=== PATIENT | male | born 1960 | race Caucasian/White ===

== ENCOUNTER 2022-06-01 10:36 | Outpatient (CLI) | payer OTHER, SELFPAY ==
[2022-06-01 18:59] LABS: Basophils Absolute Auto 0.1 K/mm3 (0.0-0.1); Basophils Percent Auto 0.7 % (0.2-1.2); Eosinophils Absolute Auto 0.3 K/mm3 (0-0.3); Eosinophils Percent Auto 2.1 % (0-4.4); Hemoglobin 16.3 g/dL (14.0-18.0); Immature Granulocyte Absolute 0.15 K/mm3 (0.00-0.031); Immature Granulocyte Percent A 1.3 % (0-0.5); Lymphocytes Absolute Auto 3.14 K/mm3 (0.9-3.2); Lymphocytes Percent Auto 26.3 % (18.3-44.2); Mean Corpuscular HGB Conc 33.3 g/dl (32-36); Mean Corpuscular Hemoglobin 27.8 pg (26-34); Mean Corpuscular Volume 83.5 fl (80-100); Mean Platelet Volume 10.9 fl (7.4-10.4); Monocytes Absolute Auto 0.6 K/mm3 (0.1-0.6); Monocytes Percent Auto 5.2 % (2.6-8.5); Neutrophils Absolute Auto 7.7 K/mm3 (1.3-6.7); Neutrophils Percent Auto 64.4 % (45.5-73.1); Platelet Count Result 269 k/mm3 (150-375); Red Blood Count 5.87 M/mm3 (4.6-6.20); Red Cell Distribution Width 14.2 % (11.5-14.5)
[2022-06-01 19:45] LABS: Creatinine Urine 107.9 mg/dL
[2022-06-01 19:49] LABS: Hemoglobin A1C 9.9 % (<5.7)
[2022-06-01 19:50] LABS: MALB Creatinine Ratio 48.4 mg/g (0-30); Microalbumin Urine Random 52.2 mg/L (0-16.7)
[2022-06-01 20:04] LABS: LDL Cholesterol Direct 35 mg/dL
[2022-06-01 20:05] LABS: Alanine Aminotransferase 29 U/L (6-50); Albumin Level 4.7 g/dL (3.5-5.1); Alkaline Phosphatase 91 U/L (38-126); Anion Gap 8 mmol/L (8-16); Aspartate Amino Transferase 25 U/L (17-59); Bilirubin,Total 0.5 mg/dL (0.2-1.3); Blood Urea Nitrogen 15 mg/dL (9-20); Calcium 9.2 mg/dL (8.4-10.2); Carbon Dioxide 28 mmol/L (22-30); Chloride 96 mmol/L (98-107); Cholesterol 310 mg/dL (0-200); Estimated Glomerular Filt Rate > 60; Glucose 284 mg/dL (65-110); HDL Direct 37 mg/dL; Potassium 4.2 mmol/L (3.4-5.0); Sodium 132 mmol/L (137-145)
[2022-06-01 21:21] LABS: Triglycerides 1995 mg/dL (<150)
== END 2022-06-01 10:37 | disposition home or self-care (01) ==
LOC: ANHGOSHLAB 10:37
PROVIDERS: PCP Family Medicine; Visit Provider Nurse Practitioner
DX: E78.5 Hyperlipidemia, unspecified (principal); E11.9 Type 2 diabetes mellitus without complications
CPT/HCPCS: 36415; 80053; 80061; 82043; 83036; 85025

== ENCOUNTER 2022-07-01 12:42 | Outpatient (CLI) | payer OTHER, SELFPAY ==
[2022-07-01 21:02] LABS: Alanine Aminotransferase 31 U/L (6-50); Albumin Level 4.5 g/dL (3.5-5.1); Alkaline Phosphatase 88 U/L (38-126); Anion Gap 13 mmol/L (8-16); Aspartate Amino Transferase 27 U/L (17-59); Bilirubin,Total 0.7 mg/dL (0.2-1.3); Blood Urea Nitrogen 20 mg/dL (9-20); Calcium 9.2 mg/dL (8.4-10.2); Carbon Dioxide 24 mmol/L (22-30); Chloride 99 mmol/L (98-107); Estimated Glomerular Filt Rate > 60; Glucose 271 mg/dL (65-110); Potassium 4.8 mmol/L (3.4-5.0); Sodium 136 mmol/L (137-145)
[2022-07-01 21:06] LABS: Basophils Absolute Auto 0.1 K/mm3 (0.0-0.1); Basophils Percent Auto 0.5 % (0.2-1.2); Eosinophils Absolute Auto 0.2 K/mm3 (0-0.3); Eosinophils Percent Auto 1.5 % (0-4.4); Hematocrit 47.7 % (42.0-52.0); Immature Granulocyte Absolute 0.14 K/mm3 (0.00-0.031); Immature Granulocyte Percent A 1.3 % (0-0.5); Lymphocytes Absolute Auto 2.53 K/mm3 (0.9-3.2); Mean Corpuscular HGB Conc 33.5 g/dl (32-36); Mean Corpuscular Volume 83.5 fl (80-100); Mean Platelet Volume 10.9 fl (7.4-10.4); Monocytes Absolute Auto 0.7 K/mm3 (0.1-0.6); Monocytes Percent Auto 6.2 % (2.6-8.5); Neutrophils Absolute Auto 7.4 K/mm3 (1.3-6.7); Neutrophils Percent Auto 67.5 % (45.5-73.1); Platelet Count Result 280 k/mm3 (150-375); Red Blood Count 5.71 M/mm3 (4.6-6.20); Red Cell Distribution Width 13.9 % (11.5-14.5)
== END 2022-07-01 12:43 | disposition home or self-care (01) ==
LOC: ANHGOSHLAB 12:45
PROVIDERS: PCP Nurse Practitioner; Visit Provider Nurse Practitioner
DX: D72.829 Elevated white blood cell count, unspecified (principal); E87.1 Hypo-osmolality and hyponatremia
CPT/HCPCS: 36415; 80053; 85025

== ENCOUNTER 2022-07-01 15:07 | Outpatient (CLI) | payer OTHER, SELFPAY ==
--- NOTE | ~2022-07-01 | CT_ITS ---
EXAMINATION: CT brain wo con DATE: 07/01/2022 15:35 INDICATION: TECHNIQUE: Computed tomography (CT) of the head was performed without intravenous contrast. The dose- length product was 605.33 mGy-cm. Automated exposure control and iterative reconstruction technique w ere employed. COMPARISON: CT dated 10/16/2007 FINDINGS: Mild generalized atrophy. No ventriculomegaly or midline shift. Basilar cisterns are patent . No acute intracranial hemorrhage, infarction, mass or mass effect. There are scattered mild periven tricular and subcortical white matter changes, most likely related to small vessel ischemic disease ( microangiopathy). Paranasal sinuses and mastoids are pneumatized. No depressed skull fractures. IMPRESSION: 1. No acute intracranial abnormality. 2: Chronic age-related findings. Reviewed, dictated and finalized at location B.
== END 2022-07-01 15:08 | disposition home or self-care (01) ==
LOC: ANHIMG 15:10
PROVIDERS: PCP Family Medicine; Visit Provider Nurse Practitioner
DX: R42 Dizziness and giddiness (principal); G43.909 Migraine, unspecified, not intractable, without status migrainosus
CPT/HCPCS: 36415; 70450; 80053; 85025

== ENCOUNTER 2025-01-27 15:18 | Outpatient (CLI) | payer OTHER, SELFPAY ==
--- OUTSIDE RECORDS SUMMARY | 2025-01-27 17:28 | XMS_ITS | Clinical Summary ---
Author Organization [facility] Address [address] [place] [address] Care Team Providers Care Dental Office Coordinator Name Role Phone Oneyda Pina MD Primary Care Provider Allergies Active Allergy Reactions Criticality Noted Date Comments Metoclopramide Anxiety,Other (See Comments) Low 02/28/2020 severe anxiety Extreme anxiety Penicillins Swelling Low 08/11/2016 States he can take Amoxicillin without problems. Prochlorperazine Anxiety Low 08/11/2016 gives me anxiety Sulfa (Sulfonamide Antibiotics) Hives High 08/11/2016 Sulfamethoxazole-Trimetho prim Unknown 08/11/2016 Medications HYDROcodone-micky taminophen (NORCO) 5-325 mg tablet Take 1 Tablet by mouth 2 times daily. Active empagliflozin (JARDIANCE) 25 mg tablet Take 25 mg by mouth daily. Active erenumab-aooe (Aimovig Autoinjector) 140 mg/mL Auto-Injector ADMINISTER 1 ML UNDER THE SKIN MONTHLY 3 Active FLUoxetine (PROzac) 20 mg capsule Take 20 mg by mouth daily. 3 Active SEMAGLUTIDE SUBCUT Inject by subcutaneous injection. Active ubrogepant (UBRELVY) 100 mg tablet Take 100 mg by mouth one time only. Active Active Problems No known active problems Encounters Date Type Department Care Team Description 11/12/2024 3:30 PM FACILITY MAINTENANCE MECHANIC Office Visit [facility] [id number] [id number] [facility] Himanshu Kamila, BRANCH COORDINATOR Cough, unspecified type (Primary Dx); Influenza from Last 3 Months Social History Tobacco Use Types Packs/Day Years Used Date Smoking Tobacco: Never Smokeless Tobacco: Never Alcohol Use Standard Drinks/Week Comments Never 0 (1 standard drink = 0.6 oz pur e alcohol) Sex and Gender Information Value Date Recorded Sex Assigned at Not on file Legal Sex Male 4:19 AM FACILITY MAINTENANCE MECHANIC Gender Identity Not on file Sexual Orientation Not on file Last Filed Vital Signs Vital Sign Reading Time Taken Comments Blood Pressure 151/84 11/12/2024 12:47 PM FACILITY MAINTENANCE MECHANIC Pulse 93 11/12/2024 12:47 PM FACILITY MAINTENANCE MECHANIC Temperature 36.8 C (98.3 F) 11/12/2024 12:47 PM FACILITY MAINTENANCE MECHANIC Respiratory Rate 18 11/12/2024 12:47 PM FACILITY MAINTENANCE MECHANIC Oxygen Saturation 96% 11/12/2024 12:47 PM FACILITY MAINTENANCE MECHANIC Inhaled Oxygen Concentration - - Weight 104.3 kg (230 lb) 11/12/2024 12:47 PM FACILITY MAINTENANCE MECHANIC Height 172.7 cm (5' 8 ) 11/12/2024 12:47 PM FACILITY MAINTENANCE MECHANIC Body Mass Index 34.97 11/12/2024 12:47 PM FACILITY MAINTENANCE MECHANIC Plan of Treatment Health Maintenance Due Date Last Done Comments DIABETES ANNUAL RETINAL EXAM 02/01/1978 DIABETES MICROALBUMIN ANNUAL SCREEN 02/01/1978 LDL CHOLESTEROL ANNUAL 02/01/1978 DTAP/TDAP/TD VACCINES (1 - Tdap) 02/01/1979 COLORECTAL SCREENING 02/01/2005 Colorectal Cancer Screening 02/01/2005 FIT-DNA Q 3 years 02/01/2005 FIT/FOBT Q 1 year 02/01/2005 Flex Sig/CT Colonography Q 5 years 02/01/2005 ZOSTER VACCINE (1 of 2) 02/01/2010 RSV VACCINE (60+ or ) (1 - Risk 60-74 years 1-dose series) 2020 DIABETES HBA1C Q 6 MONTHS 05/11/2021 11/11/2020 DIABETES ANNUAL FOOT EXAM 11/11/2021 11/11/2020 INFLUENZA VACCINE (#1) 2024 07/01/2022 COVID-19 Vaccine ( season) 2024 08/19/2023, 01/10/2021, 12/20/2020 Procedures Procedure Name Priority Date/Time Associated Diagnosis Comments POC INFLUENZA A AND B ANTIGEN Routine 11/12/2024 1:08 PM FACILITY MAINTENANCE MECHANIC Cough, unspecified type from Last 3 Months Results * POC INFLUENZA A AND B ANTIGEN (11/12/2024 1:08 PM FACILITY MAINTENANCE MECHANIC) INFLUENZA A AG POC Negative/Not Detected Negative/No t [facility]ed [facility] INFLUENZA B AG POC Negative/Not Detected Negative/No t Detected [facility] INTERNAL KIT QC POC Pass Pass [facility] KIT LOT NUMBER POC [id number] [facility] KIT EXP DATE POC 08/31/25 [facility] READ METHOD POC Visual [facility] Upper Respiratory ANTERIOR NARES SWAB / Unknown 11/12/2024 1:08 PM FACILITY MAINTENANCE MECHANIC Kamila Downs BRANCH COORDINATOR POINT OF CARE TESTING Final Res ult [facility] CLIA# [id number] [place] [address] from Last 3 Months Insurance [employer] [facility] [id number] [place] [address] [place] [address] Care Teams Dental Office Coordinator Relationship Specialty Start Date End Date Oneyda Pina MD [address] [place] [phone] PCP - General Family Practice 06/09/21
--- OUTSIDE RECORDS SUMMARY | 2025-01-27 17:28 | XMS_ITS | Encounter Summary ---
Author Organization [facility] Address [address] [place] [address] Care Team Providers Care Pit Slagman Name Role Phone Oneyda Pina MD Primary Care Provider Encounter Details Date Type Department Care Team (Late st Contact Info) Description 04/02/1998 Outpatient Historical [facility] Internal Medicine - [facility] [address] [place] [address] [place] [address] [place] [address] Social History Tobacco Use Types Packs/Day Years Used Date Smoking Tobacco: Never Assessed Sex and Gender Information Value Date Recorded Sex Assigned at Not on file Legal Sex Male 4:19 AM FACILITY ENVIRONMENTAL TECHNICIAN Gender Identity Not on file Sexual Orientation Not on file documented as of this encounter Plan of Treatment Not on file documented as of this encounter Visit Diagnoses Not on filedocumented in this encounter Additional Health Concerns Infection Onset Date Last Indicated Resolved Time R/O COVID-19 06/09/2021 06/10/2021 06/10/2021 1:20 PM CDT R/O COVID-19 01/15/2022 01/15/2022 01/16/2022 11:1 3 AM CDT documented as of this encounter Care Teams Pit Slagman Relationship Specialty Start Date End Date Oneyda Pina MD [address] [place] [phone] PCP - General Family Practice 06/09/21 documented as of this encounter
--- OUTSIDE RECORDS SUMMARY | 2025-01-27 17:28 | XMS_ITS | CONTINUITY OF CARE DOCUMENT ---
Author Name lien emmanuel Address Unknown Organization [facility] Address [address] [place] [address] Phone [phone] Care Team Providers Care Oven Drier Tender Name Role Phone lien emmanuel Unavailable Unavailable
--- OUTSIDE RECORDS SUMMARY | 2025-01-27 17:28 | XMS_ITS | Encounter Summary ---
Author Organization [facility] Address [address] [place] [address] Care Team Providers Care Parking Meter Collector Name Role Phone Oneyda Pina MD Primary Care Provider Encounter Details Date Type Department Care Team (Late st Contact Info) Description 12/31/1998 Outpatient Historical [facility] Internal Medicine - [facility] [address] [place] [address] [place] [address] [place] [address] Social History Tobacco Use Types Packs/Day Years Used Date Smoking Tobacco: Never Assessed Sex and Gender Information Value Date Recorded Sex Assigned at Not on file Legal Sex Male 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
--- OUTSIDE RECORDS SUMMARY | 2025-01-27 17:28 | XMS_ITS | Encounter Summary ---
Author Organization [facility] Address [address] [place] [address] Care Team Providers Care Metal Fabricator Welder Name Role Phone Oneyda Pina MD Primary Care Provider Encounter Details Date Type Department Care Team (Late st Contact Info) Description 02/22/2000 Outpatient Historical [facility] Internal Medicine - [facility] [address] [place] [address] [place] [address] [place] [address] Social History Tobacco Use Types Packs/Day Years Used Date Smoking Tobacco: Never Assessed Sex and Gender Information Value Date Recorded Sex Assigned at Not on file Legal Sex Male 4:19 AM SCULLION CHIEF Gender Identity Not on file Sexual Orientation [...] documented as of this encounter Care Teams Metal Fabricator Welder Relationship Specialty Start Date End Date Oneyda Pina MD [address] [place] [phone] PCP - General Family Practice 06/09/21 documented as of this encounter
--- OUTSIDE RECORDS SUMMARY | 2025-01-27 17:28 | XMS_ITS | Clinical Summary ---
Author Organization [facility] Address [address] [facility] [place] [address] Care Team Providers Care Business Director Name Role Phone Ching Mendes DO Primary Care Provi shant Allergies Active Allergy Reactions Criticality Noted Date Comments Penicillins Swelling Medium 08/11/2016 Prochlorperazine Anxiety Low 08/11/2016 gives me anxiety Metoclopramide Anxiety Low 02/28/2020 severe anxiety Sulfa (Sulfonamide Antibiotics) Hives Medium 08/02 Medications diazePAM (VALIUM) 5 mg tablet TK 1 T PO QPM AT BED 0 Active HYDROcodone-acetam inophen (NORCO) 5-325 mg per tablet TK 1 T PO Q 12 H PRF PAIN 0 Active aspirin/acetaminop hen/caffeine (EXCEDRIN MIGRAINE ORAL) Take by mouth daily as needed Active albuterol HFA (ProAir HFA) 90 mcg/actuation inhalerIndications :SOB (shortness of breath),Exposure to COVID-19 virus Inhale 2 puffs every 4 (four) hours as needed for wheezing or shortness of breath 8.5 g 1 Active metFORMIN XR (GLUCOPHAGE XR) 500 mg 24 hr tabletIndications: Type 2 diabetes mellitus with hyperglycemia, without long-term current use of insulin (HCC),Type II diabetes mellitus with complication (HCC),Type 2 diabetes mellitus with hyperlipidemia (HCC),Type 2 diabetes mellitus with diabetic autonomic neuropathy, without long-term current use of insulin (HCC),Obesity, diabetes, and hypertension syndrome (HCC),Hypertension associated with diabetes (HCC) Take 1 tab in the morning x3 days, 1 tab twice daily x3 days, 2 tabs in AM & 1 tab in PM x3 days, then 2 tabs twice daily 120 tablet [address] (CYMBALTA) 60 mg capsuleIndications :Moderate episode of recurrent major depressive disorder (HCC),GENESIS (generalized anxiety disorder),Chronic back pain, unspecified back location, unspecified back pain laterality Take 1 capsule (60 mg total) by mouth daily 90 capsule 1 1 Active atorvastatin (LIPITOR) 40 mg tabletIndications: Type II diabetes mellitus with complication (HCC),Type 2 diabetes mellitus with hyperlipidemia (HCC) Take 1 tablet (40 mg total) by mouth daily 90 tablet 1 1 Active lisinopriL (PRINIVIL,ZESTRIL) 10 mg tabletIndications: Type 2 diabetes mellitus with hyperglycemia, without long-term current use of insulin (HCC),Type II diabetes mellitus with complication (HCC),Obesity, diabetes, and hypertension syndrome (HCC),Hypertension associated with diabetes (HCC) TAKE 1 TABLET(10 MG) BY MOUTH DAILY 90 tablet 1 Active butalbital-acetami nophen-caffeine (FIORICET) 50-300-40 mg per capsule TAKE 1 CAPSULE BY MOUTH EVERY 4 HOURS FOR 4 DAYS NEEDED FOR HEADACHE 1 Active ondansetron (Zofran) 4 mg tabletIndications: Viral illness Take 1 tablet (4 mg total) by mouth every 8 (eight) hours as needed for nausea or vomiting 20 tablet 1 Active eletriptan (RELPAX) 20 mg tabletIndications: Migraine with aura and without status migrainosus, not intractable TAKE 1 TABLET BY MOUTH NEEDED MIGRAINE. MAY REPEAT IN 2 HOURS IF UNRESOLVED. DO NOT EXCEED 4 TABLETS IN 24 HOURS 20 tablet 1 Active SUMAtriptan (IMITREX) 50 mg tabletIndications: Migraine with aura and without status migrainosus, not intractable TAKE 1 TABLET BY MOUTH EVERY DAY NEEDED FOR MIGRAINE. MAY REPEAT DOSE 1 TIME IN 2 HOURS IF NO RELIEF. DO NOT EXCEED 2 TABLETS IN 24 HOURS 9 tablet 1 Active Active Problems Problem Noted Date Diagnosed Date Viral illness 01/19/2021 Assessment & Plan (01/19/2021 4:36 PM CDT): DDx: viral illness v strep throat v mono v delayed vaccine reaction v less likely influenza or covid (late in the year for influenza + outside window that flu rx would be beneficial; pt possibly already had covid 10/2020, just received 2nd covid vaccine) Supportive care, bland diet, plenty of fluids, rest zofran prn nausea Tylenol/ibu prn myalgias, sore throat Discussed return/ER precautions Hypertriglyceridemia 01/19/2021 Assessment & Plan (01/19/2021 4:35 PM CDT): TGs 1600 on 11/2020 labs. Atorvastatin increased. Counseled on healthy diet, exercise Recheck labs at next OV Insomnia 12/14/2020 Assessment & Plan (12/14/2020 10:08 AM CDT): D/w pt eating healthy, exercising, relaxation, counsling and medicaiton. List of therapist/psychiatrist given to pt. Can take otc Melatonin ER. SIGECAPS/anxiety positive; No SI,M,P; NO PMHx of malgorzata If has any sucidual thoughts to go to ER immediately. The patient was advised to call the office if symptoms worsen or do not improve. The patient verbalized an understanding of all instructions & plan. Type 2 diabetes mellitus wit h diabetic autonomic neuropathy, without long-term current use of insulin 08/23/2020 Assessment & Plan (11/11/2020 8:32 AM PARTS REMOVER): Cont medication. Assessment & Plan (08/23/2020 5:20 PM PARTS REMOVER): Possibly 2/2 cymbalta and/or autonomic neuropathy from DM2 tx DM2 as noted Start sildenafil prn - discussed potential SEs Drug-induced erectile dysfunction 08/18/2020 Assessment & Plan (08/23/2020 5:20 PM PARTS REMOVER): Possibly 2/2 cymbalta and/or autonomic neuropathy from DM2 tx DM2 as noted Start sildenafil prn - discussed potential SEs Class 2 obesity due to exces s calories with body mass index (BMI) of 38.0 to 38.9 in adult 04/21/2020 Assessment & Plan (01/19/2021 2:11 PM CDT): BMI follow up includes nutrition counseling, exercise counseling and education provided Assessment & Plan (11/11/2020 8:16 AM PARTS REMOVER): BMI follow up includes nutrition counseling, exercise counseling and education provided Type II diabetes mellitus with complication 04/2020 Assessment & Plan (12/14/2020 8:24 AM CDT): Cont to take medication. Cont to monitor feet. Cont to go to eye doctor yearly. Cont to check blood sugars. Cont to eat healthy & exercise. Assessment & Plan (11/30/2020 10:42 AM PARTS REMOVER): Cont to take medication. Cont to monitor feet. Cont to go to eye doctor yearly. Cont to check blood sugars. Cont to eat healthy & exercise. Assessment & Plan (11/11/2020 8:31 AM PARTS REMOVER): Cont to take medication. Cont to monitor feet. Cont to go to eye doctor yearly. Cont to check blood sugars. Cont to eat healthy & exercise. Assessment & Plan (10/22/2020 7:49 AM PARTS REMOVER): Cont to take medication. Cont to monitor feet. Cont to go to eye doctor yearly. Cont to check blood sugars. Cont to eat healthy & exercise. Assessment & Plan (04/21/2020 7:45 AM CDT): Cont to take medication. Cont to monitor feet. Cont to go to eye doctor yearly. Cont to check blood sugars. Cont to eat healthy & exercise. Assessment & Plan (04/07/2020 10:48 AM CDT): Stable; cont med tx BMI 38.0-38.9,adult 03/11/2020 Assessment & Plan (01/19/2021 2:11 PM CDT): BMI follow up includes nutrition counseling, exercise counseling and education provided Assessment & Plan (11/30/2020 12:58 PM PARTS REMOVER): BMI Follow-up includes: education provided. Assessment & Plan (11/11/2020 8:16 AM PARTS REMOVER): BMI follow up includes nutrition counseling, exercise counseling and education provided Assessment & Plan (10/22/2020 9:31 AM PARTS REMOVER): BMI Follow-up includes: education provided. Assessment & Plan (08/18/2020 10:14 AM PARTS REMOVER): BMI Follow-up includes: nutrition counseling, exercise counseling and education provided. Assessment & Plan (06/16/2020 10:47 AM CDT): BMI Follow-up includes: education provided. Assessment & Plan (04/21/2020 9:45 AM CDT): BMI Follow-up includes: education provided. Assessment & Plan (04/07/2020 8:11 AM CDT): BMI Follow-up includes: education provided. Obesity is unchanged. Discussed the patient's BMI. The BMI is above average; BMI management plan is completed. General weight loss/lifestyle modification strategies discussed (elicit support from others; identify saboteurs; non-food rewards, etc). Assessment & Plan (03/11/2020 1:54 PM CDT): BMI Follow-up includes: education provided. Type 2 diabetes mellitus with hyperlipidemia 07/2020 Assessment & Plan (12/14/2020 8:25 AM CDT): Advised to maintain a low-fat, low-cholesterol diet. Maintain a regular cardiovascular exercise program. Assessment & Plan (11/30/2020 10:42 AM PARTS REMOVER): Advised to maintain a low-fat, low-cholesterol diet. Maintain a regular cardiovascular exercise program. Assessment & Plan (11/11/2020 8:32 AM PARTS REMOVER): Advised to maintain a low-fat, low-cholesterol diet. Maintain a regular cardiovascular exercise program. Assessment & Plan (10/22/2020 7:49 AM PARTS REMOVER): Advised to maintain a low-fat, low-cholesterol diet. Maintain a regular cardiovascular exercise program. Assessment & Plan (04/21/2020 7:48 AM CDT): Advised to maintain a low-fat, low-cholesterol diet. Maintain a regular cardiovascular exercise program. Assessment & Plan (04/07/2020 10:48 AM CDT): Stable; cont med tx Assessment & Plan (03/11/2020 2:15 PM CDT): Advised to maintain a low-fat, low-cholesterol diet. Maintain a regular cardiovascular exercise program. The patient was advised to call the office if symptoms worsen or do not improve. The patient verbalized an understanding of all instructions & plan. Hypertension associated with diabetes 03/11/2020 Assessment & Plan (12/14/2020 9:00 AM CDT): Maintain a low-sodium diet (less than 2 grams per day). Maintain a regular cardiovascular exercise program. Assessment & Plan (11/30/2020 10:42 AM PARTS REMOVER): Maintain a low-sodium diet (less than 2 grams per day). Maintain a regular cardiovascular exercise program. Assessment & Plan (11/11/2020 10:31 AM PARTS REMOVER): Increasing Lisinopril with elevated BP. Maintain a low-sodium diet (less than 2 grams per day). Maintain a regular cardiovascular exercise program. Assessment & Plan (10/22/2020 7:52 AM PARTS REMOVER): Maintain a low-sodium diet (less than 2 grams per day). Maintain a regular cardiovascular exercise program. Assessment & Plan (08/23/2020 5:16 PM PARTS REMOVER): Uncontrolled today but suspect 2/2 acute back pain but also, pt noncompliant with lisinopril (2.5 mg) tx acute pain as noted Resume lisinopril DASH diet Exercise Home BP checks F/u 2 weeks for physical, BP recheck or sooner prn concerns Assessment & Plan (04/21/2020 7:47 AM CDT): Maintain a low-sodium diet (less than 2 grams per day). Maintain a regular cardiovascular exercise program. Assessment & Plan (04/07/2020 10:48 AM CDT): Stable; cont med tx Assessment & Plan (03/11/2020 2:16 PM CDT): Maintain a low-sodium diet (less than 2 grams per day). Maintain a regular cardiovascular exercise program. Obesity, diabetes, and hypertension syndrome 07/2020 Assessment & Plan (01/19/2021 2:11 PM CDT): BMI follow up includes nutrition counseling, exercise counseling and education provided Assessment & Plan (12/14/2020 9:00 AM CDT): Cont medication. Assessment & Plan (11/30/2020 10:43 AM PARTS REMOVER): Cont medication. Assessment & Plan (11/11/2020 8:33 AM PARTS REMOVER): Cont medication. Assessment & Plan (10/22/2020 7:53 AM PARTS REMOVER): Cont medication. Assessment & Plan (04/21/2020 7:46 AM CDT): Cont medication. Assessment & Plan (04/07/2020 8:11 AM CDT): BMI Follow-up includes: education provided. Obesity is unchanged. Discussed the patient's BMI. The BMI is above average; BMI management plan is completed. General weight loss/lifestyle modification strategies discussed (elicit support from others; identify saboteurs; non-food rewards, etc). Assessment & Plan (03/11/2020 2:16 PM CDT): Cont medication. Type 2 diabetes mellitus wit h hyperglycemia, without long-term current use of insulin 02/14/2020 Assessment & Plan (01/19/2021 4:33 PM CDT): Lab Results Component Value Date HGBA1C 9.5 (H) 11/11/2020 uncontrolled Once acute illness improved, f/u to discuss further mgmt Monitor BG at home during acute illness - discussed return/ER precautions Assessment & Plan (11/11/2020 8:30 AM PARTS REMOVER): Cont to take medication. Cont to monitor feet. Cont to go to eye doctor yearly. Cont to check blood sugars. Cont to eat healthy & exercise. Assessment & Plan (08/24/2020 7:29 AM PARTS REMOVER): Uncertain level of control. Previously significantly uncontrolled Lab Results Component Value Date HGBA1C 10.8 (H) 02/13/2020 Pt left the office today before obtaining POC A1c - return for DM2 f/u Cont metformin Assessment & Plan (04/21/2020 7:45 AM CDT): Cont to take medication. Cont to monitor feet. Cont to go to eye doctor yearly. Cont to check blood sugars. Cont to eat healthy & exercise. Assessment & Plan (04/07/2020 10:48 AM CDT): Stable; cont med tx Assessment & Plan (03/11/2020 2:15 PM CDT): Cont to take medication. Cont to monitor feet. Cont to go to eye doctor yearly. Cont to check blood sugars. Cont to eat healthy & exercise. The patient was advised to call the office if symptoms worsen or do not improve. The patient verbalized an understanding of all instructions & plan. Assessment & Plan (02/25/2020 3:54 PM CDT): Uncontrolled. Lab Results Component Value Date HGBA1C 10.8 (H) 02/13/2020 recently started on metformin and titrated up to 1000 mg BID - cont F/u 2-4 weeks -- will likely need to discuss starting additional medication Assessment & Plan (02/14/2020 7:54 AM CDT): Lab Results Component Value Date HGBA1C 10.8 (H) 02/13/2020 New dx. Uncontrolled. Likely cause of urinary frequency. Start metformin - titrate up to 1000 mg BID. F/u 1-2 weeks to discuss further mgmt. Moderate episode of recurrent major depressive d isorder 11/27/2019 Overview (04/07/2020): Pt FAILED Zoloft, Wellbutrin due to rx med tx inefficacy! SIGECAPS/anxiety NEGATIVE; NO SI,M,P; NO PMHx of malgorzata Stable; cont med tx Assessment & Plan (12/14/2020 10:07 AM CDT): D/w pt eating healthy, exercising, relaxation, counsling and medicaiton. List of therapist/psychiatrist given to pt. SIGECAPS/anxiety positive; No SI,M,P; NO PMHx of malgorzata If has any sucidual thoughts to go to ER immediately. The patient was advised to call the office if symptoms worsen or do not improve. The patient verbalized an understanding of all instructions & plan. Assessment & Plan (11/30/2020 10:43 AM PARTS REMOVER): Stable. Cont medication. Assessment & Plan (11/11/2020 8:36 AM PARTS REMOVER): Stable. Cont medication. Assessment & Plan (10/22/2020 7:53 AM PARTS REMOVER): Stable. Cont medication. Assessment & Plan (06/16/2020 11:11 AM CDT): Uncontrolled on current regimen (cymbalta 20) but has improved since starting cymbalta Increase cymbalta to 40 mg daily F/u 3 mo or sooner prn concerns Assessment & Plan (04/21/2020 7:46 AM CDT): Stable. Cont medication. Assessment & Plan (04/07/2020 10:49 AM CDT): Pt FAILED Zoloft, Wellbutrin due to rx med tx inefficacy! SIGECAPS/anxiety NEGATIVE; NO SI,M,P; NO PMHx of malgorzata Stable; cont med tx Assessment & Plan (03/11/2020 2:16 PM CDT): Stable. Cont medication. Assessment & Plan (01/13/2020 9:21 AM CDT): Uncontrolled Increase cymbalta from from 20 to 40 mg daily (+SEs with 60 mg dose) Declines counselor/therapist F/u 1 month Assessment & Plan (12/31/2019 9:26 AM CDT): Improved since starting cymbalta 60 mg daily but having med side effects. zoloft and wellbutrin previously ineffective Decrease cymbalta to 20 mg once daily If well tolerated and only mild improvement in sx, may increase to 40 mg once daily Declines seeing counselor/therapist F/u 4 weeks or sooner prn concerns Assessment & Plan (11/27/2019 5:42 PM PARTS REMOVER): Uncontrolled on zoloft 100. Wellbutrin previously ineffective. PHQ9: 20 GAD7: 21 DC zoloft Start cymbalta 60 mg daily (may also help with chronic back pain) - discussed potential side effects Declines seeing counselor/therapist F/u 4-6 weeks or sooner prn concerns GENESIS (generalized anxiety disorder) 11/27/2019 Overview (04/07/2020): Pt FAILED Zoloft, Wellbutrin due to rx med tx inefficacy! SIGECAPS/anxiety NEGATIVE; NO SI,M,P; NO PMHx of malgorzata Stable; cont med tx Assessment & Plan (12/14/2020 10:07 AM CDT): D/w pt eating healthy, exercising, relaxation, counsling and medicaiton. List of therapist/psychiatrist given to pt. SIGECAPS/anxiety positive; No SI,M,P; NO PMHx of malgorzata If has any sucidual thoughts to go to ER immediately. The patient was advised to call the office if symptoms worsen or do not improve. The patient verbalized an understanding of all instructions & plan. Assessment & Plan (11/30/2020 1:07 PM PARTS REMOVER): Has having some anxiety with BRODY. Take medication. Assessment & Plan (11/11/2020 8:36 AM PARTS REMOVER): Stable. Cont medication. Assessment & Plan (10/22/2020 7:53 AM PARTS REMOVER): Stable. Cont medication. Assessment & Plan (06/16/2020 11:11 AM CDT): Uncontrolled on current regimen (cymbalta 20) but has improved since starting cymbalta Increase cymbalta to 40 mg daily F/u 3 mo or sooner prn concerns Assessment & Plan (04/21/2020 7:47 AM CDT): Stable. Cont medication. Assessment & Plan (04/07/2020 10:50 AM CDT): Pt FAILED Zoloft, Wellbutrin due to rx med tx inefficacy! SIGECAPS/anxiety NEGATIVE; NO SI,M,P; NO PMHx of malgorzata Stable; cont med tx Assessment & Plan (03/11/2020 2:17 PM CDT): Stable. Cont medication. Assessment & Plan (01/13/2020 9:22 AM CDT): Uncontrolled Increase cymbalta from from 20 to 40 mg daily (+SEs with 60 mg dose) Cont prn valium Starting propranolol XL for migraine prophylaxis (may also help with anxiety) Declines counselor/therapist F/u 1 month Assessment & Plan (12/31/2019 9:26 AM CDT): Improved since starting cymbalta 60 mg daily but having med side effects. zoloft and wellbutrin previously ineffective Decrease cymbalta to 20 mg once daily If well tolerated and only mild improvement in sx, may increase to 40 mg once daily Declines seeing counselor/therapist F/u 4 weeks or sooner prn concerns Request/review records from previous Assessment & Plan (11/27/2019 5:43 PM PARTS REMOVER): Uncontrolled on zoloft 100 and prn valium. Wellbutrin previously ineffective. PHQ9: 20 GAD7: 21 DC zoloft Start cymbalta 60 mg daily (may also help with chronic back pain) - discussed potential side effects Declines seeing counselor/therapist F/u 4-6 weeks or sooner prn concerns Request/review records from previous PCP before considering refill of prn valium. Controlled substance agreement signed today 11/27/19 Chronic back pain 11/27/2019 Assessment & Plan (11/11/2020 10:47 AM PARTS REMOVER): Cont medication. Assessment & Plan (12/31/2019 9:27 AM CDT): Improved since starting cymbalta - cont, but at reduced dosing as noted above d/t side effects with 60 mg dose Pt on norco from previous PCP - request/review records before considering refill of norco. Controlled substance agreement signed 11/27/2019 Assessment & Plan (11/27/2019 5:45 PM PARTS REMOVER): Stable on current regimen of norco Start cymbalta (for MDD, anxiety, and chronic back pain) Request/review records from previous pcp before considering refill of norco. Controlled substance agreement signed today 11/27/19 Migraine with aura and witho ut status migrainosus, not intractable 11/27/2019 Overview (11/30/2020): Concepcion Daniel, DO Neurology. Referred to neurology 04/[address] Martin & 11/2020. Pt FAILED Amitriptyline 10mg daily due to rx med tx inefficacy! inj x2 today! Cont med tx PRN Pt currently taking Propranolol LA 80mg daily as migraine prophylaxis; possible need to change rx prophylaxis med tx due to recurrent breakthrough migraines? Topamax daily vs. Aimovig inj monthly? Refer Neurology for eval/tx Assessment & Plan (12/14/2020 10:06 AM CDT): Has apt with neuro on Monday. Refilled abortive migraine medication. Had injections 2 weeks ago for migraines. HgA1C 11/2020 was 9.5. The patient was advised to call the office if symptoms worsen or do not improve. The patient verbalized an understanding of all instructions & plan. Assessment & Plan (11/30/2020 1:26 PM PARTS REMOVER): Concepcion Daniel, DO Neurology. Referred to neurology 04/[address] Martin & 11/2020. Has apt 01/18/2021. Injections given in office. Take migraine as needed medication. The patient was advised to call the office if symptoms worsen or do not improve. The patient verbalized an understanding of all instructions & plan. Assessment & Plan (11/11/2020 10:28 AM PARTS REMOVER): Injections given in office. The patient was advised to call the office if symptoms worsen or do not improve. The patient verbalized an understanding of all instructions & plan. Assessment & Plan (08/23/2020 5:22 PM PARTS REMOVER): Uncontrolled. Failed amitriptyline, propranolol, topamax d/t inefficacy and/or SEs. Pt most recently rx'ed aimovig but has been unable to obtain d/t insurance issues Advised pt call his insurance about this Previously referred to neuro, Dr. Daniel, for further eval/mgmt Assessment & Plan (06/16/2020 11:11 AM CDT): Uncontrolled. Depomedrol/toradol/tigan injection given today (has tolerated well previously) No improvement since switching amitriptyline to propranolol. DC propranolol. Topamax also previously ineffective. Start aimovig - discussed potential SEs Cont prn meds. Discussed importance of tx'ing with prn meds at initial onset of sx rather than waiting. Cont appt as sched with neuro, Dr. Daniel, for further eval/mgmt Discussed ER precautions Assessment & Plan (04/21/2020 7:48 AM CDT): Stable. Cont medication. Assessment & Plan (04/07/2020 10:48 AM CDT): Pt FAILED Amitriptyline 10mg daily due to rx med tx inefficacy! inj x2 today! Cont med tx PRN Pt currently taking Propranolol LA 80mg daily as migraine prophylaxis; possible need to change rx prophylaxis med tx due to recurrent breakthrough migraines? Topamax daily vs. Aimovig inj monthly? Refer Neurology for eval/tx Assessment & Plan (03/11/2020 2:18 PM CDT): Having migraines since Monday. Ran out of Sumatriptan since it was increased. Insurance won't give him anymore. Sending a different abortive med to pharmacy. Injections in office today. The patient was advised to call the office if symptoms worsen or do not improve. The patient verbalized an understanding of all instructions & plan. Assessment & Plan (02/28/2020 12:58 PM CDT): Patient given in office today: Toradol 60 mg IM DepoMedrol 80 mg IM Tigan 50 mg IM For treatment of Migraine Headache Assessment & Plan (02/25/2020 4:01 PM CDT): Mildly uncontrolled on current regimen of propranolol LA 60 mg daily and prn imitrex 50 mg, prn tylenol. Possibly d/t medication ineffective v recent decrease of caffeine intake v uncontrolled DM2 v med SE (new metformin) Increase propranolol LA to 80 mg daily Start excedrin prn at initial onset of migraine Can increase prn imitrex to 100 mg at a time (do not exceed 200 mg in 24 hr) F/u if sx not improving - can schedule in office appt for steroid/toradol/anti- nausea medication injection for acute migraine if needed Work excuse given for pt for today Assessment & Plan (01/13/2020 9:21 AM CDT): Mildly controlled on amitriptyline and prn imitrex but +SEs with amitriptyline 50 mg daily Taper off amitriptyline (25 mg daily x1 week, then 25 mg every other day x1 week then stop) Start propranolol XL 60 mg daily for migraine prophylaxis (last OV HR: 96; may also help with anxiety) - discussed potential SEs Cont prn imitrex Avoid migraine triggers F/u 1 month or sooner prn concerns Assessment & Plan (11/27/2019 5:46 PM PARTS REMOVER): Mildly controlled on current regimen of amitriptyline and prn imitrex. Pt gets side effects with amitriptyline. Discussed changing amitriptyline to topamax or propranolol - pt amenable but do not want to make multiple medications at once. Will start cymbalta for chronic back pain/MDD/anxiety today and f/u on migraines in 1-2 months Resolved Problems Problem Noted Date Diagnosed Date Resolved Date Annual physical exam 11/11/2020 021 Assessment & Plan (11/11/2020 10:27 AM PARTS REMOVER): Maintain healthy lifestyle with healthy diet & exercise. SOB (shortness of breath) 11/11/2020 Assessment & Plan (11/11/2020 10:26 AM PARTS REMOVER): 10/2020 tested neg at . Had rapid COVID test done. Did have several COVID symptoms. Was given Amoxacillin & Inhaler. Still having SOB & headaches. Exposure to COVID-19 virus 10/22/2020 0 12/14/2020 Overview (11/11/2020): 10/2020 tested neg at . Had rapid COVID test done. Did have several COVID symptoms. Was given Amoxacillin & Inhaler. Still having SOB & headaches. Assessment & Plan (11/11/2020 10:26 AM PARTS REMOVER): 10/2020 tested neg at . Had rapid COVID test done. Did have several COVID symptoms. Was given Amoxacillin & Inhaler. Still having SOB & headaches. Assessment & Plan (10/22/2020 9:47 AM PARTS REMOVER): Was tested yesterday @ & neg. Has all the symptoms. Could be a false neg. Also given abx & inhaler. Cont to take. Quarantine. D/w pt otc medications & supportive measures. The patient was advised to call the office if symptoms worsen or do not improve. The patient verbalized an understanding of all instructions & plan. Hypertension, essential 08/23/2020/2 10/2020 Assessment & Plan (08/23/2020 5:17 PM PARTS REMOVER): Uncontrolled today but suspect 2/2 acute back pain but also, pt noncompliant with lisinopril (2.5 mg) tx acute pain as noted Resume lisinopril DASH diet Exercise Home BP checks F/u 2 weeks for physical, BP recheck or sooner prn concerns Acute left-sided low back pa in with left-sided sciatica 08/18/2020 10/22/2020 Assessment & Plan (08/23/2020 5:24 PM PARTS REMOVER): Low suspicion for fracture or dislocation Start flexeril prn spasm - discussed potential SEs (pt has tolerated well previously) Depomedrol/toradol/tigan injection given today (pt has benefitted from this previously) Discussed return/ER precautions Sore throat 04/21/2020 10/22/2020 Assessment & Plan (04/21/2020 10:02 AM CDT): Unable to do a rapid strep in the office due to Telehealth visit. Take throat lozanges or chlorasept as needed. Take warm tea or other warm liquids or popsicles or other cold liquids as needed. May use cool mist humdifier. May take tylenol or ibuprofen as needed. The patient was advised to call the office if symptoms worsen or do not improve. The patient verbalized an understanding of all instructions & plan. Acute sinusitis 04/21/2020 10/22/2020 Assessment & Plan (04/21/2020 10:02 AM CDT): Take abx as prescribed. Take yogurt or probiotic while on abx. Start taking an antihistamine such as zyrtec, claritin or moe daily at nightime. May use otc Flonase. Increase clear fluids. Maintain adequate rest. May use cool mist humidifier. The patient was advised to call the office if symptoms worsen or do not improve. The patient verbalized an understanding of all instructions & plan. Morbid obesity 04/07/2020 04/21/2020 Assessment & Plan (04/07/2020 8:12 AM CDT): BMI Follow-up includes: education provided. Obesity is unchanged. Discussed the patient's BMI. The BMI is above average; BMI management plan is completed. General weight loss/lifestyle modification strategies discussed (elicit support from others; identify saboteurs; non-food rewards, etc). Controlled substance agreement signed 11/27/2019 10/22/2020 Overview (11/27/2019): Signed today 11/27/19 as pt currently taking norco and valium - rx'ed by previous PCP. Request / review records before considering refills of these medications. Assessment & Plan (11/27/2019 5:44 PM PARTS REMOVER): Signed today 11/27/19 as pt currently taking norco and valium - rx'ed by previous PCP. Request / review records before considering refills of these medications. Immunizations Immunization Administration Dates Next Due Influenza, Unspecified 06/12/2020,2019,06/02/2019,2017 Pfizer SARS-CoV-2 Monovalent Vaccination (12+ Yrs) PURPLE 01/10/2021,12/20/2020 Family History Medical History Relation Name Comments Breast cancer Maternal Grandfather Stroke Maternal Grandmother Lung cancer Mother Relation Name Status Comments Maternal Grandfather Maternal Grandmother Mother Social History Tobacco Use Types Packs/Day Years Used Date Smoking Tobacco: Never Smokeless Tobacco: Never Tobacco Cessation:Counseling Given: No Alcohol Use Standard Drinks/Week Comments Not Currently 0 (1 standard drink = 0.6 oz pur e alcohol) PHQ-2 Answer Date Recorded PHQ-2 Total Score 0 01/19/2021 Sex and Gender Information Value Date Recorded Sex Assigned at Not on file Legal Sex Male 2:02 PM PARTS REMOVER Gender Identity Male 02/13/2020 2:16 PM CDT Sexual Orientation Not on file 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 @ [employer] Not on file Not on file Not on file Obstetrics History Last Filed Vital Signs Vital Sign Reading Time Taken Comments Blood Pressure 136/84 12/14/2020 9:42 AM CDT Pulse 82 12/14/2020 9:42 AM CDT Temperature 35.9 C (96.6 F) 12/14/2020 9:42 AM CDT Respiratory Rate 20 10/24/2019 10:35 PM PARTS REMOVER Oxygen Saturation 95% 11/11/2020 9:58 AM PARTS REMOVER Inhaled Oxygen Concentration - - Weight 112.5 kg (248 lb) 01/19/2021 2:05 PM CDT Height 172.7 cm (5' 7.99 ) 01/19/2021 2:05 PM CD T Body Mass Index 37.72 01/19/2021 2:05 PM CDT Plan of Treatment Health Maintenance Due Date Last Done Comments Colon Cancer Screening-Colonoscopy 1960 Hepatitis C Screening 1960 Dilated Eye Exam 1960 DTaP/Tdap/Td Vaccine (1 - Tdap) 02/01/1971 Hepatitis B Screening 02/01/1978 Pneumococcal vaccine <65 (1 of 2 - PCV) 02/01/1979 Zoster Vaccine (1 of 2) 02/01/2010 Hemoglobin A1C 05/11/2021 11/11/2020, 02/13/2020 Albumin Creatinine Ratio, Urine 11/11/2021 , 02/13/2020 Foot Exam 11/11/2021 11/11/2020, 03/11/2020 Lipid Panel 11/11/2021 11/11/2020, 03/11/2020 Regular Well Visit/Exam 18-64 11/11/2021 11/11/2020 eGFR 11/11/2021 11/11/2020, 02/13/2020 Depression Screening 01/19/2022 01/19/2021, 12/14/2020, 11/30/2020, Additional history exists Prostate Cancer Screening-PSA 03/11/2022 03/11/2020 Covid-19 Vaccine (3 - 2023-2 5 season) 2024 01/10/2021, 12/20/2020 Influenza Vaccine (#1) 2024 0, 11/12/2019, 06/02/2019, Additional history exists Procedures Procedure Name Priority Date/Time Associated Diagnosis Comments EGFR Routine 11/11/2020 10:25 AM PARTS REMOVER Annual physical exam Type 2 diabetes mellitus with hyperglycemia, without long-term current use of insulin (HCC) Type II diabetes mellitus with complication (HCC) Type 2 diabetes mellitus with hyperlipidemia (HCC) Type 2 diabetes mellitus with diabetic autonomic neuropathy, without long-term current use of insulin (HCC) Obesity, diabetes, and hypertension syndrome (HCC) Hypertension associated with diabetes (HCC) HEMOGLOBIN A1C Routine 11/11/2020 10:25 AM PARTS REMOVER Annual physical exam Type 2 diabetes mellitus with hyperglycemia, without long-term current use of insulin (HCC) Type II diabetes mellitus with complication (HCC) Type 2 diabetes mellitus with hyperlipidemia (HCC) Type 2 diabetes mellitus with diabetic autonomic neuropathy, without long-term current use of insulin (HCC) Obesity, diabetes, and hypertension syndrome (HCC) Hypertension associated with diabetes (HCC) LIPID PANEL Routine 11/11/2020 10:25 AM PARTS REMOVER Annual physical exam Type 2 diabetes mellitus with hyperglycemia, without long-term current use of insulin (HCC) Type II diabetes mellitus with complication (HCC) Type 2 diabetes mellitus with hyperlipidemia (HCC) Type 2 diabetes mellitus with diabetic autonomic neuropathy, without long-term current use of insulin (HCC) Obesity, diabetes, and hypertension syndrome (HCC) ALBUMIN CREATININE RATIO, URINE Routine 11/11/2020 10:25 AM PARTS REMOVER Annual physical exam Type 2 diabetes mellitus with hyperglycemia, without long-term current use of insulin (HCC) Type II diabetes mellitus with complication (HCC) Type 2 diabetes mellitus with hyperlipidemia (HCC) Type 2 diabetes mellitus with diabetic autonomic neuropathy, without long-term current use of insulin (HCC) Obesity, diabetes, and hypertension syndrome (HCC) Hypertension associated with diabetes (HCC) PSA SCREEN Routine 03/11/2020 2:35 PM CDT Screening for prostate cancer from Last 3 Months or Most Recently Relevant to Health Maintenance Results * eGFR (11/11/2020 10:25 AM PARTS REMOVER) eGFR 108 mL/min/1.7 3 m2 [facility] Comment: Interpretive Data Reference Interval Normal >/= 90 mL/min/1.73m2 Mildly decreased* 60 - 89 mL/min/1.73m2 Mildly to moderately decreased 45 - 59 mL/min/1.73m2 Moderately to severely decreased 30 - 44 mL/min/1.73m2 Severely decreased 15 - 29 mL/min/1.73m2 Kidney Failure < 15 mL/min/1.73m2 *Relative to young adult level Estimated glomerular filtration rate is determined by the CKD-EPI equation recommended by the National Kidney Foundation (KDIGO 2012 Clinical Practice Guideline for the Evaluation and Management of Chronic Kidney Disease. Kidney Intnl Suppl Oct 2012;3:1). The CKD-EPI equation should not be used for patients with unstable renal function and has not been validated in children and those over 70. Current interpretive data was last reviewed 2020 Blood specimen (specimen) 11/11/2020 10:25 AM PARTS REMOVER 11/11/2020 3:43 PM PARTS REMOVER us Shadia Bailey FEED MILL OPERATOR LAB BLOOD ORDERABLES Final Resu lt [facility] [address] Department [place] [address] * Albumin Creatinine Ratio, Urine (11/11/2020 10:25 AM PARTS REMOVER) Albumin Ur 14.7 mg/L [facility] Comment: Interpretive Data No reference range established. Current interpretive data was last revised 2019. Creatinine Ur 50.1 mg/dL [facility] Comment: Interpretive Data No reference range established. Current interpretive data was last revised 2019. Albumin Creatinine Ratio, Ur 29 1 - 29 mg/g [facility] Urine 11/11/2020 10:2 5 AM PARTS REMOVER 11/11/2020 3:43 PM PARTS REMOVER us Shadia A. Leo FEED MILL OPERATOR LAB URINE ORDERABLES Final Resu lt Performing Organization Address [facility] de Phone Number [facility] [address] Department [place] [address] * (ABNORMAL) Hemoglobin A1c (11/11/2020 10:25 AM PARTS REMOVER) Hgb A1C 9.5(H) 4.0 - 5.6 % [facility] Estimated Average Glucose 226 mg/dL [facility] Comment: The ADA recommends reporting an estimated Average Glucose (eAG) with all Hemoglobin A1c results using the equation derived from a study of 507 normal and diabetic adults. Minority populations were underrepresented and children were not included. (Diabetes Care 31:3369-1037, 2008). The eAG is not equivalent to a fasting glucose. Blood specimen (specimen) 11/11/2020 10:25 AM PARTS REMOVER 11/11/2020 3:43 PM PARTS REMOVER Shadia Bailey FEED MILL OPERATOR LAB BLOOD ORDERABLES Final Resu lt Performing Organization Address [facility] de Phone Number [facility] [address] Department [place] [address] * (ABNORMAL) Lipid panel (11/11/2020 10:25 AM PARTS REMOVER) Cholesterol 358(H) 30 - 199 mg/dL [facility] Comment: Interpretive Data Ages < or = 19 years Acceptable: <170 mg/dL Borderline high: 170-199 mg/dL High: >or= 200 mg/dL Ages > or = 20 years Desirable: <200 mg/dL Borderline high: 200-239 mg/dL High: >or= 240 mg/dL Literature References: 1. Expert Panel on Integrated Guidelines for Cardiovascular Health and Risk Reduction in Children and Adolescents. Pediatrics 2011;128:S213 2. NCEP Expert Panel. Circulation 2004;110:227 Current Interpretive Data was last revised on 2018. Triglycerides 1,619(H) <=149 mg/dL [facility] Comment: Interpretive Data Ages < or = 9 years Acceptable: <75 mg/dL Borderline high: 75-99 mg/dL High: >or= 100 mg/dL Ages 10 to 20 years Acceptable: <90 mg/dL Borderline high: 90-129 mg/dL High: >or= 130 mg/dL Ages > or = 20 years Desirable: <150 mg/dL Borderline high: 150-199 mg/dL High: 200-499 mg/dL Very high: >or= 499 mg/dL Literature References: 1. Expert Panel on Integrated Guidelines for Cardiovascular Health and Risk Reduction in Children and Adolescents. Pediatrics 2011;128:S213 2. NCEP Expert Panel. Circulation 2004;110:227 Current Interpretive Data was last revised on 2018. HDL 28(L) >=40 mg/dL [facility] Comment: Interpretive Data Ages < or = 19 years Acceptable: >45 mg/dL Borderline low: 40-45 mg/dL Low: <40 mg/dL Ages > or = 20 years Desirable: >or= 60 mg/dL Low: <40 mg/dL Literature References: 1. Expert Panel on Integrated Guidelines for Cardiovascular Health and Risk Reduction in Children and Adolescents. Pediatrics 2011;128:S213 2. NCEP Expert Panel. Circulation 2004;110:227 Current Interpretive Data was last revised on 2018. LDL, calculated See Comment <=129 mg/dL [facility] Comment: Unable to calculate due to elevated Triglycerides. Interpretive Data Ages < or = 19 years Acceptable: <110 mg/dL Borderline high: 110-129 mg/dL High: >or= 130 mg/dL Ages > or = 20 years Optimal: <100 mg/dL Near optimal: 100-129 mg/dL Borderline high: 130-159 mg/dL High: >160 mg/dL Literature References: 1. Expert Panel on Integrated Guidelines for Cardiovascular Health and Risk Reduction in Children and Adolescents. Pediatrics 2011;128:S213 2. NCEP Expert Panel. Circulation 2004;110:227 Current Interpretive Data was last revised on 2018. Non-HDL Cholesterol 330 mg/dL [facility] Comment: Interpretive Data Ages < or = 19 years Acceptable: <120 mg/dL Borderline high: 120-144 mg/dL High: >145 mg/dL Ages > or = 20 years When triglycerides are >200 mg/dL, Non-HDL cholesterol is a secondary target of therapy with treatment goals that are 30 mg/dL greater than the LDL cholesterol target. Literature References: 1. Expert Panel on Integrated Guidelines for Cardiovascular Health and Risk Reduction in Children and Adolescents. Pediatrics 2011;128:S213 2. NCEP Expert Panel. Circulation 2004;110:227 Current Interpretive Data was last revised on 2018. Chol/HDL ratio 13 [facility] Blood specimen (specimen) 11/11/2020 10:25 AM PARTS REMOVER 11/11/2020 3:43 PM PARTS REMOVER Shadia Bailey FEED MILL OPERATOR LAB BLOOD ORDERABLES Final Resu lt Performing Organization Address City/[facility] Co de Phone Number [facility] [address] [employer] [place], [place] [id number] * PSA screen (03/11/2020 2:35 PM CDT) PSA-Total 0.74 <=5.40 ng/mL [facility] Comment: Interpretive Data AGE SEX REFERENCE INTERVAL 0 minutes-150 years Female None 0 minutes-49 years Male None 50-59 years Male 0-3.90 60-69 years Male 0-5.40 70-79 years Male 0-6.20 80-150 years Male 0-6.20 Current interpretive data last revised 2018. Blood specimen (specimen) 03/11/2020 2:35 PM CDT 03/11/2020 8:34 PM CDT Shadia Bailey FEED MILL OPERATOR LAB BLOOD ORDERABLES Final Resu lt Performing Organization Address City/[facility]/ZIP Co de Phone Number [facility] [address] [place] [address] from Last 3 Months or Most Recently Relevant to Health Maintenance Insurance [facility] H[facility]/PPO Address: [address] [address] [facility] HMO/PPO Address: [address] [address] Care Teams Business Director Relationship Specialty Start Date End Date Ching Mendes DO [address] [place] [address] PCP - General Family Medicine 11/27/19
--- OUTSIDE RECORDS SUMMARY | 2025-01-27 17:28 | XMS_ITS | Clinical Summary ---
Author Organization [facility] [employer] Address [address] [place] [address] Care Team Providers Care Hair Rooting Machine Operator Name Role Phone Franki Tsai MD Primary Care Provider [phone] [facility] [employer],non-owned Affiliates and Associated Physician Practices is amultiple site organization consisting of ambulatory clinics and hospital sitesin [place], [place], [place] and [place]. This disclosure is being madepursuant to the Care Everywhere program and may not contain all information available regarding this patient. Last updated 18.[facility] [employer] Allergies Active Allergy Reactions Criticality Noted Date Comments Prochlorperazine 08/11/2016 gives me anxiety Penicillins Swelling 08/11/2016 Metoclopramide Other 11/22/2021 Extreme anxiety Sulfa Drugs 08/11/2016 Medications * Be aware that medications may not be up to date on this document. Alwaysverify current medications with the patient. HYDROcodone-micyk taminophen (NORCO) 5-325 MG tablet Take 1 tablet by mouth every 12 hours as needed FOR PAIN 11/16/19 22 Active empagliflozin (Jardiance) 25 MG tablet Take 1 (one) tablet by mouth once daily Active FLUoxetine (PROzac) 20 MG capsule Take 2 (two) capsules by mouth once daily 05/22/20 23 Active SUMAtriptan (Imitrex) 100 MG tablet Take 0.5 (one-half) tablet by mouth as needed 08/23/20 22 Active Trulicity 0.75 MG/0.5ML injection Inject 0.5 mL subcutaneously every 7 days 05/24/20 23 Active Mounjaro 2.5 MG/0.5ML injection ADMINISTER 2.5 MG UNDER THE SKIN WEEKLY FOR 4 WEEKS 10/27/19 24 Active busPIRone (Buspar) 5 MG tablet Take 1 (one) tablet by mouth 2 times daily as needed 30 tablet 3 06/06/20 24 Active Qulipta 60 MG TABS TAKE 1 TABLET BY MOUTH DAILY 30 tablet 5 11/25/19 25 Active butalbital-acet aminophen-caffe ine (Fioricet) 50-300-40 MG capsule Take 1 (one) capsule by mouth every 4 hours as needed for Headache 30 capsule 1 12/03/19 25 Active ubrogepant (Ubrelvy) 100 MG tabletIndicatio ns:Intractable migraine with aura with status migrainosus Take 1 (one) tablet by mouth daily as needed - may repeat one time for Migraine No more than 2 doses in 24 hours. 8 tablet 5 01/04/20 25 Active ubrogepant (Ubrelvy) 100 MG tablet Take 1 (one) tablet by mouth daily as needed - may repeat one time for Migraine No more than 2 doses in 24 hours. 16 tablet 5 12/04/19 24 025 Discontin ued(List Clean-Up) ubrogepant (Ubrelvy) 100 MG tablet Take 1 (one) tablet by mouth daily as needed - may repeat one time for Migraine No more than 2 doses in 24 hours. 16 tablet 5 06/06/20 24 025 Discontin ued(List Clean-Up) Active Problems Problem Noted Date Diagnosed Date Intractable migraine with aura with status migra inosus 07/10/2024 Diabetes mellitus 07/10/2024 Anxiety 07/10/2024 Encounters Date Type Department Care Team Description 12/02/2024 2:15 PM FLAME HARDENER Office Visit [facility] [address] [place] [address] Maxi Jones DO Intractable migraine with aura with status migrainosus (Primary Dx) 11/22/[address] [facility] [address] [place] [address] Maxi Jones, Refill Request from Last 3 Months Social History Tobacco Use Types Packs/Day Years Used Date Smoking Tobacco: Never Smokeless Tobacco: Never Alcohol Use Standard Drinks/Week Comments No 0 (1 standard drink = 0.6 oz pur e alcohol) Sex and Gender Information Value Date Recorded Sex Assigned at Not on file Legal Sex Male 6:00 AM FLAME HARDENER Gender Identity Not on file Sexual Orientation Not on file Last Filed Vital Signs Vital Sign Reading Time Taken Comments Blood Pressure 151/85 12/02/2024 2:16 PM FLAME HARDENER Pulse 77 12/02/2024 2:16 PM FLAME HARDENER Temperature 36.6 C (97.9 F) 11/22/2021 6:39 PM FLAME HARDENER Respiratory Rate 18 11/22/2021 11:53 PM FLAME HARDENER Oxygen Saturation 93% 11/22/2021 11:44 PM FLAME HARDENER Inhaled Oxygen Concentration - - Weight 100.2 kg (221 lb) 12/02/2024 2:16 PM FLAME HARDENER Height 172.7 cm (5' 8 ) 12/02/2024 2:16 PM FLAME HARDENER Body Mass Index 33.6 12/02/2024 2:16 PM FLAME HARDENER Plan of Treatment Upcoming Encounters Date Type Department Care Team (Late st Contact Info) Description 02/05/2025 1:00 PM CDT Office Visit [facility] [address], [address] [place] [address] Tej Reynaga MD [address] [place] [phone] Health Maintenance Due Date Last Done Comments COLOGUARD (AGES 45-75) - COLON CA SCREENING 1960 COLON MONITORING 1960 COLONOSCOPY - COLON CA SCREENING 1960 CT COLONOGRAPHY - COLON CA SCREENING 1960 Colorectal Cancer Screening 1960 FIT - COLON CA SCREENING 1960 FLEX SIG - COLON CA SCREENING 1960 HIV SCREENING 02/01/1975 HEPATITIS C SCREENING 01/28/1978 DTAP/TDAP/TD VACCINES (1 - Tdap) 02/01/1979 PNEUMOCOCCAL VACCINE 50+ (1 of 2 - PCV) 02/01/1979 DIABETES-STATIN 2000 ZOSTER VACCINE (1 of 2) 02/01/2010 Respiratory Syncytial Virus (RSV) Vaccine Pt: or over 60 yrs (1 - Risk 60-74 years 1-dose series) 2020 DIABETES-SERUM CREATININE 11/22/20222021, 01/27/2019, 08/11/2016 COVID-19 VACCINE ( season) 2024 01/10/2021, 12/20/2020 DIABETES RETINOPATHY SCREENING 07/10/2024 DIABETES-FOOT EXAM WITH MONOFILAMENT 07/10/2024 DIABETES-HGB A1C 07/10/2024 11/11/2020 DEPRESSION SCREENING 10/02/2024 DIABETES - URINE PROTEIN SCREENING 10/02/2024 INFLUENZA VACCINE (Season Ended) 2025 06/12/2020, 11/12/2019, 06/02/2019, Additional history exists HEPATITIS B VACCINE Aged Out No longe r eligible based on patient's age to complete this topic HIB VACCINE Aged Out No longer eligi ble based on patient's age to complete this topic HPV VACCINE Aged Out No longer eligi ble based on patient's age to complete this topic MENINGOCOCCAL (Group B) VACCINE SHARED DECISION-MAKING Aged Out No longer eligible based on patient's age to complete this topic MENINGOCOCCAL GROUPS A/C/Y/W VACCINE Aged Out No longer eligible based on patient's age to complete this topic Procedures Procedure Name Priority Date/Time Associated Diagnosis Comments COMPREHENSIVE METABOLIC PANEL STAT 11/22/2021 7:40 PM FLAME HARDENER from Last 3 Months or Most Recently Relevant to Health Maintenance Results * (ABNORMAL) COMPREHENSIVE METABOLIC PANEL (11/22/2021 7:40 PM FLAME HARDENER) Glucose 327(H) 70 - 105 mg/dL 11/22/2021 8:16 PM FLAME HARDENER [facility] Sodium 130(L) 136 - 145 mmol/L 11/22/2021 8:16 PM FLAME HARDENER [facility] Potassium 4.4 3.5 - 5.1 mmol/L 11/22/2021 8:16 PM FLAME HARDENER [facility] Chloride 95(L) 98 - 107 mmol/L 11/22/2021 8:16 PM FLAME HARDENER [facility] CO2 17(L) 23 - 31 mmol/L 11/22/2021 8:16 PM FLAME HARDENER [facility] Calcium 9.4 8.4 - 10.4 mg/dL 11/22/2021 8:16 PM FLAME HARDENER [facility] Anion Gap 18 8 - 18 mmol/L 11/22/2021 8:16 PM FLAME HARDENER [facility] BUN 25 8.4 - 25.7 mg/dL 11/22/2021 8:16 PM FLAME HARDENER [facility] Creatinine 1.25 0.72 - 1.25 mg/dL 11/22/2021 8:16 PM FLAME HARDENER [facility] Alkaline Phosphatase 70 40 - 150 U/L 11/22/2021 8:16 PM FLAME HARDENER [facility] ALT 37 0 - 61 U/L 11/22/2021 8:16 PM FLAME HARDENER [facility] AST 29 5 - 34 U/L 11/22/2021 8:16 PM [facility] Protein Total 8.3 6.4 - 8.3 gm/dL 11/22/2021 8:16 PM [facility] Albumin 4.2 3.2 - 4.6 gm/dL 11/22/2021 8:16 PM [facility] Bilirubin Total 0.4 0.2 - 1.2 mg/dL 11/22/2021 8:16 PM FLAME HARDENER [facility] eGFR by MDRD 59(L) >60 mL/min/1.7 3m2 11/22/2021 8:16 PM FLAME HARDENER [facility] eGFR by MDRD >60 >60 mL/min/1.7 3m2 11/22/2021 8:16 PM [facility] Blood BLOOD SPECIMEN / Unknown Venipuncture / Unknown 11/22/2021 7:40 PM FLAME HARDENER 11/22/2021 7:54 PM FLAME HARDENER Amy Norris MANAGER [facility] - CHEMISTRY ORDERA BLES Final Result [facility] [address] [place] [address] from Last 3 Months or Most Recently Relevant to Health [place] [address] [facility] Care Teams Hair Rooting Machine Operator Relationship Specialty Start Date End Date Franki Tsai MD [address] [place] [address] PCP - General Family Medicine 08/11/16
--- OUTSIDE RECORDS SUMMARY | 2025-01-27 17:28 | XMS_ITS | Clinical Summary ---
Author Organization [facility] Address [facility] access [facility] [place] [address] Care Team Providers Care Doll Eye Setter Name Role Phone Unavailable Primary Care Provider Unavailabl e Social History Tobacco Use Types Packs/Day Years Used Date Smoking Tobacco: Never Assessed Sex and Gender Information Value Date Recorded Sex Assigned at Not on file Legal Sex Male 8:27 PM CDT Gender Identity Not on file Sexual Orientation Not on file Plan of Treatment Health Maintenance Due Date Last Done Comments Colorectal Cancer Screening Colonoscopy (10 Years) 1960 Annual Physical 02/01/1963 Hepatitis C 02/01/1978 DTaP, Tdap and Td Vaccines ( 1 - Tdap) 02/01/1979 Pneumococcal Vaccine: 50+ Ye ars (1 of 1 - PCV) 02/01/2010 Zoster Vaccines (1 of 2) 02/01/2010 COVID-19 Vaccine ( - 2023-2 5 season) 2024 RSV Immunization or 60+ Years (1 - 1-dose 75+ series) 02/01/2035 Meningococcal B Vaccine Aged Out No l onger eligible based on patient's age to complete this topic Meningococcal Vaccine Aged Out No viviane misael eligible based on patient's age to complete this topic RSV Immunizations Under 20 Months Aged Out No longer eligible based on patient's age to complete this topic
--- OUTSIDE RECORDS SUMMARY | 2025-01-27 17:28 | XMS_ITS | Encounter Summary ---
Author Organization [facility] Address [address] [place] [address] Care Team Providers Care Radio Maintainer Name Role Phone Oneyda Pina MD Primary Care Provider Encounter Details Date Type Department Care Team (Late st Contact Info) Description 08/17/1998 Outpatient Historical [facility] - [facility] [id number] [place] [address] [place] [address] [place] [address] Social History Tobacco Use Types Packs/Day Years Used Date Smoking Tobacco: Never Assessed Sex and Gender Information Value Date Recorded Sex Assigned at Not on file 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
--- OUTSIDE RECORDS SUMMARY | 2025-01-27 17:28 | XMS_ITS | Encounter Summary ---
Author Organization [facility] Address [address] [place] [address] Care Team Providers Care Ethanol Quality Leader Name Role Phone Oneyda Pina MD Primary Care Provider Encounter Details Date Type Department Care Team (Late st Contact Info) Description 12/10/1998 Outpatient Historical [facility] - [facility] [phone] [place] [address] [place] [address] [place] [address] Social History Tobacco Use Types Packs/Day Years Used Date Smoking Tobacco: Never Assessed Sex and Gender Information Value Date Recorded Sex Assigned at Not on file Legal Sex Male 4:19 AM HUC OB Gender Identity Not on file Sexual Orientation [...] documented as of this encounter Care Teams Ethanol Quality Leader Relationship Specialty Start Date End Date Oneyda Pina MD [address] [place] [address] PCP - General Family Practice 06/09/21 documented as of this encounter
--- OUTSIDE RECORDS SUMMARY | 2025-01-27 17:29 | XMS_ITS | Referral Summary ---
Author Organization [facility] Address [address] [place] [address] Care Team Providers Care Horse Racer Name Role Phone Ching Mendes DO Primary [...] 08/23/2020 Assessment & Plan (11/11/2020 8:32 AM HAND TURNER): Cont medication. Assessment & Plan (08/23/2020 5:20 PM HAND TURNER): Possibly 2/2 cymbalta and/or autonomic neuropathy from DM2 tx DM2 as noted Start sildenafil prn - discussed potential SEs Drug-induced erectile dysfunction 08/18/2020 Assessment & Plan (08/23/2020 5:20 PM HAND TURNER): Possibly 2/2 cymbalta and/or autonomic neuropathy from DM2 tx DM2 as noted Start sildenafil prn - discussed potential SEs Class 2 obesity due to exces s calories with body mass index (BMI) of 38.0 to 38.9 in adult 04/21/2020 Assessment & Plan (01/19/2021 2:11 PM CDT): BMI follow up includes nutrition counseling, exercise counseling and education provided Assessment & Plan (11/11/2020 8:16 AM HAND TURNER): BMI follow up includes nutrition counseling, exercise counseling and education provided Type II diabetes mellitus with complication 04/2020 Assessment & Plan (12/14/2020 8:24 AM CDT): Cont to take medication. Cont to monitor feet. Cont to go to eye doctor yearly. Cont to check blood sugars. Cont to eat healthy & exercise. Assessment & Plan (11/30/2020 10:42 AM HAND TURNER): Cont to take medication. Cont to monitor feet. Cont to go to eye doctor yearly. Cont to check blood sugars. Cont to eat healthy & exercise. Assessment & Plan (11/11/2020 8:31 AM HAND TURNER): Cont to take medication. Cont to monitor feet. Cont to go to eye doctor yearly. Cont to check blood sugars. Cont to eat healthy & exercise. Assessment & Plan (10/22/2020 7:49 AM HAND TURNER): Cont to take medication. Cont to monitor [...] provided Assessment & Plan (11/30/2020 12:58 PM HAND TURNER): BMI Follow-up includes: education provided. Assessment & Plan (11/11/2020 8:16 AM HAND TURNER): BMI follow up includes nutrition counseling, exercise counseling and education provided Assessment & Plan (10/22/2020 9:31 AM HAND TURNER): BMI Follow-up includes: education provided. Assessment & Plan (08/18/2020 10:14 AM HAND TURNER): BMI Follow-up includes: nutrition counseling, exercise counseling [...] program. Assessment & Plan (11/30/2020 10:42 AM HAND TURNER): Advised to maintain a low-fat, low-cholesterol diet. Maintain a regular cardiovascular exercise program. Assessment & Plan (11/11/2020 8:32 AM HAND TURNER): Advised to maintain a low-fat, low-cholesterol diet. Maintain a regular cardiovascular exercise program. Assessment & Plan (10/22/2020 7:49 AM HAND TURNER): Advised to maintain a low-fat, low-cholesterol diet. [...] program. Assessment & Plan (11/30/2020 10:42 AM HAND TURNER): Maintain a low-sodium diet (less than 2 grams per day). Maintain a regular cardiovascular exercise program. Assessment & Plan (11/11/2020 10:31 AM HAND TURNER): Increasing Lisinopril with elevated BP. Maintain a low-sodium diet (less than 2 grams per day). Maintain a regular cardiovascular exercise program. Assessment & Plan (10/22/2020 7:52 AM HAND TURNER): Maintain a low-sodium diet (less than 2 grams per day). Maintain a regular cardiovascular exercise program. Assessment & Plan (08/23/2020 5:16 PM HAND TURNER): Uncontrolled today but suspect 2/2 acute back [...] medication. Assessment & Plan (11/30/2020 10:43 AM HAND TURNER): Cont medication. Assessment & Plan (11/11/2020 8:33 AM HAND TURNER): Cont medication. Assessment & Plan (10/22/2020 7:53 AM HAND TURNER): Cont medication. Assessment & Plan (04/21/2020 7:46 [...] precautions Assessment & Plan (11/11/2020 8:30 AM HAND TURNER): Cont to take medication. Cont to monitor feet. Cont to go to eye doctor yearly. Cont to check blood sugars. Cont to eat healthy & exercise. Assessment & Plan (08/24/2020 7:29 AM HAND TURNER): Uncertain level of control. Previously significantly uncontrolled [...] plan. Assessment & Plan (11/30/2020 10:43 AM HAND TURNER): Stable. Cont medication. Assessment & Plan (11/11/2020 8:36 AM HAND TURNER): Stable. Cont medication. Assessment & Plan (10/22/2020 7:53 AM HAND TURNER): Stable. Cont medication. Assessment & Plan (06/16/2020 [...] concerns Assessment & Plan (11/27/2019 5:42 PM HAND TURNER): Uncontrolled on zoloft 100. Wellbutrin previously ineffective. [...] plan. Assessment & Plan (11/30/2020 1:07 PM HAND TURNER): Has having some anxiety with BRODY. Take medication. Assessment & Plan (11/11/2020 8:36 AM HAND TURNER): Stable. Cont medication. Assessment & Plan (10/22/2020 7:53 AM HAND TURNER): Stable. Cont medication. Assessment & Plan (06/16/2020 [...] previous Assessment & Plan (11/27/2019 5:43 PM HAND TURNER): Uncontrolled on zoloft 100 and prn valium. [...] 11/27/2019 Assessment & Plan (11/11/2020 10:47 AM HAND TURNER): Cont medication. Assessment & Plan (12/31/2019 9:27 AM CDT): Improved since starting cymbalta - cont, but at reduced dosing as noted above d/t side effects with 60 mg dose Pt on norco from previous PCP - request/review records before considering refill of norco. Controlled substance agreement signed 11/27/2019 Assessment & Plan (11/27/2019 5:45 PM HAND TURNER): Stable on current regimen of norco Start [...] plan. Assessment & Plan (11/30/2020 1:26 PM HAND TURNER): Concepcion Daniel, DO Neurology. Referred to neurology 04/[address] Martin & 11/2020. Has apt 01/18/2021. Injections given in office. Take migraine as needed medication. The patient was advised to call the office if symptoms worsen or do not improve. The patient verbalized an understanding of all instructions & plan. Assessment & Plan (11/11/2020 10:28 AM HAND TURNER): Injections given in office. The patient was advised to call the office if symptoms worsen or do not improve. The patient verbalized an understanding of all instructions & plan. Assessment & Plan (08/23/2020 5:22 PM HAND TURNER): Uncontrolled. Failed amitriptyline, propranolol, topamax d/t inefficacy [...] concerns Assessment & Plan (11/27/2019 5:46 PM HAND TURNER): Mildly controlled on current regimen of amitriptyline [...] 021 Assessment & Plan (11/11/2020 10:27 AM HAND TURNER): Maintain healthy lifestyle with healthy diet & exercise. SOB (shortness of breath) 11/11/2020 Assessment & Plan (11/11/2020 10:26 AM HAND TURNER): 10/2020 tested neg at . Had rapid [...] headaches. Assessment & Plan (11/11/2020 10:26 AM HAND TURNER): 10/2020 tested neg at . Had rapid COVID test done. Did have several COVID symptoms. Was given Amoxacillin & Inhaler. Still having SOB & headaches. Assessment & Plan (10/22/2020 9:47 AM HAND TURNER): Was tested yesterday @ & neg. Has [...] 10/2020 Assessment & Plan (08/23/2020 5:17 PM HAND TURNER): Uncontrolled today but suspect 2/2 acute back pain but also, pt noncompliant with lisinopril (2.5 mg) tx acute pain as noted Resume lisinopril DASH diet Exercise Home BP checks F/u 2 weeks for physical, BP recheck or sooner prn concerns Acute left-sided low back pa in with left-sided sciatica 08/18/2020 10/22/2020 Assessment & Plan (08/23/2020 5:24 PM HAND TURNER): Low suspicion for fracture or dislocation Start [...] medications. Assessment & Plan (11/27/2019 5:44 PM HAND TURNER): Signed today 11/27/19 as pt currently taking norco and valium - rx'ed by previous PCP. Request / review records before considering refills of these medications. Immunizations Immunization Administration Dates Next Due Influenza, Unspecified 06/12/2020,2019,06/02/2019,2017 Pfizer SARS-CoV-2 Monovalent Vaccination (12+ Yrs) PURPLE 01/10/2021,12/20/2020 Social History Tobacco Use Types Packs/Day Years Used Date Smoking Tobacco: Never Smokeless Tobacco: Never Tobacco Cessation:Counseling Given: No Alcohol Use Standard Drinks/Week Comments Not Currently 0 (1 standard drink = 0.6 oz pur e alcohol) PHQ-2 Answer Date Recorded PHQ-2 Total Score 0 01/19/2021 Sex and Gender Information Value Date Recorded Sex Assigned at Not on file Legal Sex Male 2:02 PM HAND TURNER Gender Identity Male 02/13/2020 2:16 PM CDT Sexual Orientation Not on file Occupation Industry Job Start 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 @ [employer] Not on file Not on file Not on file Last Filed Vital Signs Vital Sign Reading Time Taken Comments Blood Pressure 136/84 12/14/2020 9:42 AM CDT Pulse 82 12/14/2020 9:42 AM CDT Temperature 35.9 C (96.6 F) 12/14/2020 9:42 AM CDT Respiratory Rate 20 10/24/2019 10:35 PM HAND TURNER Oxygen Saturation 95% 11/11/2020 9:58 AM HAND TURNER Inhaled Oxygen Concentration - - Weight 112.5 kg (248 lb) 01/19/2021 2:05 PM CDT Height 172.7 cm (5' 7.99 ) 01/19/2021 2:05 PM CD T Body Mass Index 37.72 01/19/2021 2:05 PM CDT Plan of Treatment Not on file Procedures Procedure Name Priority Date/Time Associated Diagnosis Comments EGFR Routine 11/11/2020 10:25 AM HAND TURNER Annual physical exam Type 2 diabetes mellitus with hyperglycemia, without long-term current use of insulin (HCC) Type II diabetes mellitus with complication (HCC) Type 2 diabetes mellitus with hyperlipidemia (HCC) Type 2 diabetes mellitus with diabetic autonomic neuropathy, without long-term current use of insulin (HCC) Obesity, diabetes, and hypertension syndrome (HCC) Hypertension associated with diabetes (HCC) HEMOGLOBIN A1C Routine 11/11/2020 10:25 AM HAND TURNER Annual physical exam Type 2 diabetes mellitus with hyperglycemia, without long-term current use of insulin (HCC) Type II diabetes mellitus with complication (HCC) Type 2 diabetes mellitus with hyperlipidemia (HCC) Type 2 diabetes mellitus with diabetic autonomic neuropathy, without long-term current use of insulin (HCC) Obesity, diabetes, and hypertension syndrome (HCC) Hypertension associated with diabetes (HCC) LIPID PANEL Routine 11/11/2020 10:25 AM HAND TURNER Annual physical exam Type 2 diabetes mellitus with hyperglycemia, without long-term current use of insulin (HCC) Type II diabetes mellitus with complication (HCC) Type 2 diabetes mellitus with hyperlipidemia (HCC) Type 2 diabetes mellitus with diabetic autonomic neuropathy, without long-term current use of insulin (HCC) Obesity, diabetes, and hypertension syndrome (HCC) ALBUMIN CREATININE RATIO, URINE Routine 11/11/2020 10:25 AM HAND TURNER Annual physical exam Type 2 diabetes mellitus [...] Maintenance Results * eGFR (11/11/2020 10:25 AM HAND TURNER) eGFR 108 mL/min/1.7 3 m2 [facility]3] Comment: Interpretive Data Reference Interval Normal >/= [...] 2020 Blood specimen (specimen) 11/11/2020 10:25 AM HAND TURNER 11/11/2020 3:43 PM HAND TURNER us Shadia Bailey NP LAB BLOOD ORDERABLES Final Resu lt [facility]3] [address] Department [place] [address] * Albumin Creatinine Ratio, Urine (11/11/2020 10:25 AM HAND TURNER) Albumin Ur 14.7 mg/L [facility]3] Comment: Interpretive Data No reference range established. Current interpretive data was last revised 2019. Creatinine Ur 50.1 mg/dL [facility]3] Comment: Interpretive Data No reference range established. Current interpretive data was last revised 2019. Albumin Creatinine Ratio, Ur 29 1 - 29 mg/g [facility]3] Urine 11/11/2020 10:2 5 AM HAND TURNER 11/11/2020 3:43 PM HAND TURNER Shadia Bailey HOIST CYLINDER LOADER LAB URINE ORDERABLES Final Resu lt Performing Organization Address [facility] de Phone Number [facility]3] [address] [employer] [place], [place] [id number] * (ABNORMAL) Hemoglobin A1c (11/11/2020 10:25 AM HAND TURNER) Hgb A1C 9.5(H) 4.0 - 5.6 % [facility]3] Estimated Average Glucose 226 mg/dL [facility]3] Comment: The ADA recommends reporting an estimated Average Glucose (eAG) with all Hemoglobin A1c results using the equation derived from a study of 507 normal and diabetic adults. Minority populations were underrepresented and children were not included. (Diabetes Care 31:1787-6330, 2008). The eAG is not equivalent to a fasting glucose. Blood specimen (specimen) 11/11/2020 10:25 AM HAND TURNER 11/11/2020 3:43 PM HAND TURNER Shadia Bailey NP LAB BLOOD ORDERABLES Final Resu lt Performing Organization Address [facility] Co de Phone Number [facility]3] [address] [employer] [place], [place] [id number] * (ABNORMAL) Lipid panel (11/11/2020 10:25 AM HAND TURNER) Cholesterol 358(H) 30 - 199 mg/dL [facility]3] Comment: Interpretive Data Ages < or = [...] revised on 2018. Triglycerides 1,619(H) <=149 mg/dL [facility]3] Comment: Interpretive Data Ages < or = [...] revised on 2018. HDL 28(L) >=40 mg/dL [facility]3] Comment: Interpretive Data Ages < or = [...] 2018. LDL, calculated See Comment <=129 mg/dL [facility]3] Comment: Unable to calculate due to elevated [...] revised on 2018. Non-HDL Cholesterol 330 mg/dL [facility]3] Comment: Interpretive Data Ages < or = [...] last revised on 2018. Chol/HDL ratio 13 [facility]3] Blood specimen (specimen) 11/11/2020 10:25 AM HAND TURNER 11/11/2020 3:43 PM HAND TURNER us Shadia Bailey NP LAB BLOOD ORDERABLES Final Resu lt Performing Organization Address [facility]/ZIP Co de Phone Number [facility]3] [address] Department [place] [address] * PSA screen (03/11/2020 2:35 PM CDT) PSA-Total 0.74 <=5.40 ng/mL [facility]3] Comment: Interpretive Data AGE SEX REFERENCE INTERVAL 0 minutes-150 years Female None 0 minutes-49 years Male None 50-59 years Male 0-3.90 60-69 years Male 0-5.40 70-79 years Male 0-6.20 80-150 years Male 0-6.20 Current interpretive data last revised 2018. Blood specimen (specimen) 03/11/2020 2:35 PM CDT 03/11/2020 8:34 PM CDT us Shadia Bailey HOIST CYLINDER LOADER LAB BLOOD ORDERABLES Final Resu lt [facility]3] [address] Department [place] [address] from Last 3 Months or Most Recently Relevant to Health Maintenance Insurance [employer] [facility] Care Teams Horse Racer Relationship Specialty Start Date End Date Ching Mendes DO [address] [place] [address] PCP - General Family Medicine 11/27/19
[2025-01-27 19:19] LABS: Basophils Absolute Auto 0.1 K/mm3 (0.0-0.1); Basophils Percent Auto 0.5 % (0.2-1.2); Eosinophils Absolute Auto 0.2 K/mm3 (0-0.3); Eosinophils Percent Auto 1.6 % (0-4.4); Hematocrit 49.9 % (42.0-52.0); Hemoglobin 16.5 g/dL (14.0-18.0); Immature Granulocyte Absolute 0.06 K/mm3 (0.00-0.031); Immature Granulocyte Percent A 0.5 % (0-0.5); Lymphocytes Absolute Auto 3.79 K/mm3 (0.9-3.2); Lymphocytes Percent Auto 29.6 % (18.3-44.2); Mean Corpuscular HGB Conc 33.1 g/dl (32-36); Mean Corpuscular Hemoglobin 29.4 pg (26-34); Mean Corpuscular Volume 88.8 fl (80-100); Mean Platelet Volume 9.9 fl (7.4-10.4); Monocytes Absolute Auto 0.9 K/mm3 (0.1-0.6); Monocytes Percent Auto 7.2 % (2.6-8.5); Neutrophils Absolute Auto 7.8 K/mm3 (1.3-6.7); Neutrophils Percent Auto 60.6 % (45.5-73.1); Platelet Count Result 370 k/mm3 (150-375); Red Blood Count 5.62 M/mm3 (4.6-6.20); Red Cell Distribution Width 13.6 % (11.5-14.5); White Blood Count 12.8 K/mm3 (4.5-10.0)
[2025-01-27 19:29] LABS: Alanine Aminotransferase 17 U/L (6-50); Albumin Level 4.7 g/dL (3.5-5.1); Alkaline Phosphatase 61 U/L (38-126); Anion Gap 11 mmol/L (4-12); Aspartate Amino Transferase 27 U/L (17-59); Bilirubin,Total 0.4 mg/dL (0.2-1.3); Blood Urea Nitrogen 16 mg/dL (9-20); Calcium 9.2 mg/dL (8.4-10.2); Carbon Dioxide 24 mmol/L (22-30); Chloride 105 mmol/L (98-107); Cholesterol 229 mg/dL (0-200); Estimated Glomerular Filt Rate > 60; Glucose 93 mg/dL (65-110); HDL Direct 46 mg/dL; Potassium 4.2 mmol/L (3.4-5.0); Sodium 140 mmol/L (137-145); Triglycerides 357 mg/dL (<150); Vitamin D 25 Hydroxy 21.3 ng/mL
[2025-01-27 19:32] LABS: Creatinine Urine 125.2 mg/dL
[2025-01-27 19:39] LABS: MALB Creatinine Ratio 21.4 mg/g (0-30); Microalbumin Urine Random 26.8 mg/L (0-16.7)
[2025-01-27 19:41] LABS: LDL Cholesterol Direct 96 mg/dL
[2025-01-28 16:20] LABS: Prostate Specific Antigen 1.2 ng/mL (< OR = 4.0)
== END 2025-01-27 15:19 | disposition home or self-care (01) ==
LOC: ANHGOSHLAB 15:19
PROVIDERS: PCP Family Medicine; Visit Provider Nurse Practitioner Family
DX: E11.9 Type 2 diabetes mellitus without complications (principal); I10 Essential (primary) hypertension; E55.9 Vitamin D deficiency, unspecified; E78.5 Hyperlipidemia, unspecified; F41.9 Anxiety disorder, unspecified; F32.A Depression, unspecified; G47.00 Insomnia, unspecified; Z12.5 Encounter for screening for malignant neoplasm of prostate
CPT/HCPCS: 36415; 80053; 80061; 82043; 82306; 83036; 84153; 84443; 85025; G0103